=== PATIENT | female | born 1950 | race African-American/Black ===

== ENCOUNTER 2017-03-22 04:30 | Emergency (ER) | payer OTHER ==
[2017-03-22 06:28] LABS: microscopic required? NO
[2017-03-22 06:38] LABS: PLATELET COUNT 217 x10^3mcL (130-400); RED CELL DISTRIBUTION WIDTH 14.1 % (11.5-14.5)
[2017-03-22 06:46] LABS: urine erythrocyte NEGATIVE (NEGATIVE)
[2017-03-22 06:46] LABS: CALCIUM 9.1 mg/dL (8.5-10.1); CARBON DIOXIDE 28.4 mmol/L (21-32); CHLORIDE SERUM 104 mmol/L (98-107); CREATININE SERUM 0.9 mg/dL (0.6-1.0); GFR1 > 60 mL/min; GLUCOSE SERUM 120 mg/dL (74-106); POTASSIUM SERUM 3.6 mmol/L (3.5-5.1); SODIUM SERUM 141 mmol/L (136-145)
[2017-03-22 06:51] LABS: ALBUMIN 3.5 g/dL (3.4-5.0); ALKALINE PHOSPHATASE 94 U/L (46-116); ALT/SGPT 35 U/L (14-59); AST/SGOT 22 U/L (15-37); BILIRUBIN TOTAL 0.61 mg/dL (0.20-1.00); TOTAL PROTEIN, SERUM 7.6 g/dL (6.4-8.2)
[2017-03-22 07:15] LABS: BAND NEUTROPHIL 0 % (0-10); BASOPHIL 0 % (0-2); MONOCYTE 12 % (0-7); SEGMENTED NEUTROPHILS 65 % (37-75)
[2017-03-22 07:17] LABS: PLATELET MORPHOLOGY PLATELETS DECREASED; rbc morphology (normal/abnorm) NORMAL (NORMAL)
[2017-03-22 08:00] VITALS: BP 138/82
== END 2017-03-22 08:00 | disposition home or self-care (01) ==
LOC: ED 04:30
PROVIDERS: Emergency Medicine
DX: R10.9 Unspecified abdominal pain (principal); I10 Essential (primary) hypertension; J45.909 Unspecified asthma, uncomplicated
CPT/HCPCS: J1885; J2405

== ENCOUNTER 2020-02-24 14:19 | Emergency (ER) | payer OTHER | END 2020-02-24 17:40 | disposition home or self-care (01) | LOC: ED 14:19 | DX: M25.562 Pain in left knee (principal) ==